=== PATIENT | female | born 1935 | race Caucasian/White ===

== ENCOUNTER 2017-04-14 20:52 | Inpatient (IN) | payer OTHER, BC ==
[~2017-04-14] VITALS: Ht 160 cm; Wt 44.9 kg
[2017-04-14 20:55] VITALS: BP 240/112
[2017-04-14] MEDS ORDERED: methylPREDNISolone SS 125 MG in WATER STERILE 2 ML IV ONE (21:05)
[2017-04-14] MEDS ORDERED: methylPREDNISolone SS 125 MG/2 ML VIAL ONE (21:09)
[2017-04-14] MEDS ORDERED: NITROGLYCERIN 0.4 MG TAB SL ONE (22:30)
[2017-04-14 22:49] LABS: PROTHROMBIN TIME 10.7 secs (10.8-13.4)
[2017-04-14 22:54] LABS: BASOPHILS # (AUTO) 0.1 K/uL (0.00-0.22); BASOPHILS % (AUTO) 0.8 % (0.0-2.0); EOSINOPHILS # (AUTO) 0.2 K/uL (0-0.4); EOSINOPHILS % (AUTO) 0.9 % (0.0-4.0); HEMATOCRIT 37.3 % (36-48); HEMOGLOBIN 12.1 g/dL (12.0-16.0); LYMPHOCYTES # (AUTO) 0.9 K/uL (2.5-16.5); LYMPHOCYTES % (AUTO) 5.1 % (20.5-51.1); MEAN CORPUSCULAR HEMOGLOBIN 30 pg (27-31); MEAN CORPUSCULAR HGB CONC 33 g/dL (33-37); MEAN CORPUSCULAR VOLUME 93 fL (80-94); MONOCYTES # (AUTO) 0.9 K/uL (0.8-1.0); MONOCYTES % (AUTO) 5.3 % (1.7-9.3); NEUTROPHILS # (AUTO) 15.1 K/uL (1.8-7.7); PLATELET COUNT (AUTO) 377 K/uL (140-450); RED CELL DISTRIBUTION WIDTH 19.5 % (11.6-13.7); WHITE BLOOD COUNT (AUTO) 17.2 K/uL (4.8-10.8)
[2017-04-14 22:56] LABS: NEUTROPHILS % (AUTO) 87.9 % (42.2-75.2)
[2017-04-14 23:01] LABS: ALBUMIN 3.8 g/dL (3.4-5.0); ANION GAP 17.9 (8-16); ASPARTATE AMINOTRANSFERASE 29 U/L (15-37); CARBON DIOXIDE 27.2 mmol/L (21-32); CHLORIDE 96 mmol/L (98-107); GLUCOSE 150 mg/dL (74-106); LIPASE 195 U/L (73-393); POTASSIUM 5.1 mmol/L (3.5-5.1); SODIUM SERUM 136 mmol/L (136-145); TOTAL BILIRUBIN 0.8 mg/dL (0.0-1.0); UREA NITROGEN, BLOOD 45 mg/dL (7-18)
[2017-04-14] MEDS ORDERED: NITROGLYCERIN 2% 1 GM PKT TP ONE (23:05)
[2017-04-14 23:10] LABS: CREATININE 6.3 mg/dL (0.6-1.3)
[2017-04-14] MEDS ORDERED: ASPIRIN 325 MG TAB PO ONE (23:15)
[2017-04-14] MEDS: NACL 0.9% 1,000 ML IV SCH (23:41)
[2017-04-14] MEDS: FUROSEMIDE 40 MG/4 ML VIAL IVP SCH ×2 (23:42→23:56)
[2017-04-14] MEDS ORDERED: ONDANSETRON 4 MG/2 ML VIAL IVP PRN (23:45)
[2017-04-14] MEDS ORDERED: HYDROcodone/APAP 7.5/325 MG 1 TAB PO PRN (23:45)
[2017-04-14] MEDS ORDERED: ACETAMINOPHEN 325 MG TAB PO PRN (23:45)
[2017-04-15 00:24] LABS: CHOL/HDL RATIO 3.4 (1-4.5); FREE T4 (FREE THYROXINE) 0.92 ng/dL (0.76-1.46); MAGNESIUM 2.7 mg/dL (1.8-2.4); PHOSPHORUS 5.9 mg/dL (2.5-4.9); THYROID STIMULATING HORMONE 2.47 uIU/mL (0.34-3.74)
[2017-04-15] MEDS: DOCUSATE SODIUM 100 MG GELCAP PO SCH ×2 (01:17→09:00)
[2017-04-15] MEDS: cloNIDine 0.1 MG TAB PO SCH ×3 (01:19→13:00)
[2017-04-15] MEDS ORDERED: hydrALAZINE 20 MG/ML VIAL IVP SCH (01:40)
[2017-04-15 02:00] VITALS: BP_SYST 231
[2017-04-15] MEDS ORDERED: hydrALAZINE 20 MG/ML VIAL IVP PRN (02:09)
[2017-04-15] MEDS ORDERED: LORazepam 1 MG TAB PO SCH (03:00)
[2017-04-15] MEDS ORDERED: HYDROcodone/APAP 5/325 MG 1 TAB TAB PO SCH (03:00)
[2017-04-15] MEDS ORDERED: ACET-8386 PO (03:09)
[2017-04-15] MEDS ORDERED: TRAM50TA3 PO (03:09)
[2017-04-15] MEDS ORDERED: AMMO12CR TP (03:09)
[2017-04-15] MEDS ORDERED: CARER90 PO (03:09)
[2017-04-15] MEDS ORDERED: FURO-570 PO (03:09)
[2017-04-15] MEDS ORDERED: PHO667 PO (03:09)
[2017-04-15] MEDS ORDERED: CLON0.1T42 PO (03:09)
[2017-04-15] MEDS ORDERED: FLUT1DSK2 IH (03:09)
[2017-04-15] MEDS ORDERED: BER PO (03:09)
[2017-04-15] MEDS ORDERED: LORA-476 PO (03:09)
[2017-04-15] MEDS ORDERED: FUROSEMIDE 40 MG/4 ML VIAL IVP SCH (03:15)
[2017-04-15] MEDS ORDERED: LEVOFLOXACIN 750 MG/D5W PREMIX 150 ML IV SCH (03:25)
[2017-04-15 06:58] LABS: BASOPHILS # (AUTO) 0.1 K/uL (0.00-0.22); BASOPHILS % (AUTO) 0.9 % (0.0-2.0); EOSINOPHILS # (AUTO) 0.1 K/uL (0-0.4); EOSINOPHILS % (AUTO) 0.9 % (0.0-4.0); HEMATOCRIT 34.1 % (36-48); HEMOGLOBIN 11.2 g/dL (12.0-16.0); LYMPHOCYTES # (AUTO) 0.3 K/uL (2.5-16.5); LYMPHOCYTES % (AUTO) 3.5 % (20.5-51.1); MEAN CORPUSCULAR HEMOGLOBIN 31 pg (27-31); MEAN CORPUSCULAR HGB CONC 33 g/dL (33-37); MEAN CORPUSCULAR VOLUME 93 fL (80-94); MONOCYTES % (AUTO) 0.5 % (1.7-9.3); NEUTROPHILS # (AUTO) 7.8 K/uL (1.8-7.7); NEUTROPHILS % (AUTO) 94.2 % (42.2-75.2); PLATELET COUNT (AUTO) 313 K/uL (140-450); RED BLOOD CELL COUNT(AUTO) 3.67 MIL/uL (4.20-5.40); RED CELL DISTRIBUTION WIDTH 19.3 % (11.6-13.7); WHITE BLOOD COUNT (AUTO) 8.3 K/uL (4.8-10.8)
[2017-04-15 07:27] LABS: ANION GAP 17.6 (8-16); CARBON DIOXIDE 26.2 mmol/L (21-32); CHLORIDE 97 mmol/L (98-107); GLUCOSE 175 mg/dL (74-106); POTASSIUM 5.8 mmol/L (3.5-5.1); SODIUM SERUM 135 mmol/L (136-145); UREA NITROGEN, BLOOD 51 mg/dL (7-18)
[2017-04-15 07:29] LABS: MAGNESIUM 2.5 mg/dL (1.8-2.4); PHOSPHORUS 5.6 mg/dL (2.5-4.9)
[2017-04-15 07:35] LABS: CREATININE 6.9 mg/dL (0.6-1.3)
[2017-04-15 08:00] VITALS: BP 197/87
[2017-04-15] MEDS: CALCIUM ACETATE 667 MG TAB PO SCH ×3 (08:55→17:47)
[2017-04-15] MEDS: VITAMIN B COMPLEX W/C 1 TAB PO SCH (08:55)
[2017-04-15] MEDS: traMADol 50 MG TAB PO SCH (08:55)
[2017-04-15] MEDS: LACTOBACILLUS RHAMNOSUS GG 1 EACH CAP PO SCH (08:55)
[2017-04-15] MEDS: FUROSEMIDE 40 MG TAB PO SCH (08:56)
[2017-04-15] MEDS ORDERED: NON-FORMULARY ITEM (Fluticasone/Salmeterol* (Advair 250-50 Diskus*) 1 PUFF) IH SCH (09:00)
[2017-04-15] MEDS ORDERED: AMMONIUM LACTATE TP SCH (09:00)
[2017-04-15] MEDS ORDERED: DILTIAZEM 90 MG CAPER PO SCH (09:00)
[2017-04-15] MEDS: DILTIAZEM 120 MG CAPER PO SCH (09:13)
[2017-04-15 12:00] VITALS: BP 150/76
[2017-04-15] MEDS ORDERED: hePARIN / DEXT 5% PREMIX 250 ML IV SCH ×2 (13:45→14:40)
[2017-04-15] MEDS ORDERED: HEPARIN PER PHARMACY MC PRN (13:45)
[2017-04-15 16:00] VITALS: BP 146/70
[2017-04-15 20:00] VITALS: BP 140/71
[2017-04-15] MEDS: NACL 0.9% 1,000 ML IV SCH (23:41)
[2017-04-16] VITALS: BP 146/67
[2017-04-16] MEDS: traMADol 50 MG TAB PO SCH ×3 (01:17→09:35)
[2017-04-16 04:00] VITALS: BP 161/78
[2017-04-16] MEDS: cloNIDine 0.1 MG TAB PO SCH ×2 (05:37→07:07)
[2017-04-16 07:00] LABS: BASOPHILS % (AUTO) 0.4 % (0.0-2.0); EOSINOPHILS # (AUTO) 0.1 K/uL (0-0.4); EOSINOPHILS % (AUTO) 0.7 % (0.0-4.0); HEMATOCRIT 32.4 % (36-48); HEMOGLOBIN 10.6 g/dL (12.0-16.0); LYMPHOCYTES # (AUTO) 0.7 K/uL (2.5-16.5); LYMPHOCYTES % (AUTO) 6.6 % (20.5-51.1); MEAN CORPUSCULAR HEMOGLOBIN 30 pg (27-31); MEAN CORPUSCULAR HGB CONC 33 g/dL (33-37); MEAN CORPUSCULAR VOLUME 93 fL (80-94); MONOCYTES # (AUTO) 0.8 K/uL (0.8-1.0); MONOCYTES % (AUTO) 7.5 % (1.7-9.3); NEUTROPHILS # (AUTO) 8.7 K/uL (1.8-7.7); NEUTROPHILS % (AUTO) 84.8 % (42.2-75.2); PLATELET COUNT (AUTO) 309 K/uL (140-450); RED BLOOD CELL COUNT(AUTO) 3.49 MIL/uL (4.20-5.40); RED CELL DISTRIBUTION WIDTH 19.9 % (11.6-13.7); WHITE BLOOD COUNT (AUTO) 10.3 K/uL (4.8-10.8)
[2017-04-16 07:24] LABS: ANION GAP 12.2 (8-16); CARBON DIOXIDE 30.3 mmol/L (21-32); CHLORIDE 97 mmol/L (98-107); CREATININE 3.8 mg/dL (0.6-1.3); GLUCOSE 93 mg/dL (74-106); POTASSIUM 4.5 mmol/L (3.5-5.1); SODIUM SERUM 135 mmol/L (136-145); UREA NITROGEN, BLOOD 21 mg/dL (7-18)
[2017-04-16 07:30] LABS: PHOSPHORUS 4.9 mg/dL (2.5-4.9)
[2017-04-16 08:00] VITALS: BP 180/78
[2017-04-16] MEDS: CALCIUM ACETATE 667 MG TAB PO SCH ×2 (09:00→09:35)
[2017-04-16] MEDS: DOCUSATE SODIUM 100 MG GELCAP PO SCH ×2 (09:00→09:34)
[2017-04-16] MEDS: FUROSEMIDE 40 MG TAB PO SCH ×2 (09:00→09:35)
[2017-04-16] MEDS ORDERED: CARVEDILOL 3.125 MG TAB PO SCH (09:30)
[2017-04-16] MEDS: VITAMIN B COMPLEX W/C 1 TAB PO SCH (09:32)
[2017-04-16] MEDS: LACTOBACILLUS RHAMNOSUS GG 1 EACH CAP PO SCH (09:34)
[2017-04-16] MEDS: DILTIAZEM 120 MG CAPER PO SCH (09:34)
[2017-04-16] MEDS ORDERED: hydrALAZINE 20 MG/ML VIAL IVP PRN (11:25)
[2017-04-16] MEDS ORDERED: hydrALAZINE 10 MG TAB PO SCH ×2 (11:26→13:00)
[2017-04-16] MEDS ORDERED: CARV3.12 PO (11:42)
[2017-04-17] MEDS ORDERED: CARVEDILOL 3.125 MG TAB PO SCH (09:00)
== END 2017-04-16 12:05 | disposition left against medical advice (07) | DRG 291 ==
LOC: MED 20:52 → MTU 23:44
PROVIDERS: ADMIT Family Medicine; ATTEND Family Medicine
PROC: 5A1D70Z Performance of Urinary Filtration, Intermittent, Less than 6 Hours Per Day (ICD-10-PCS; principal; 2017-04-14)
DX: I13.2 Hypertensive heart and chronic kidney disease with heart failure and with stage 5 chronic kidney disease, or end stage renal disease (principal); I50.43 Acute on chronic combined systolic (congestive) and diastolic (congestive) heart failure; N17.0 Acute kidney failure with tubular necrosis; J96.00 Acute respiratory failure, unspecified whether with hypoxia or hypercapnia; N18.6 End stage renal disease; I16.9 Hypertensive crisis, unspecified; E87.1 Hypo-osmolality and hyponatremia; E78.5 Hyperlipidemia, unspecified; F41.9 Anxiety disorder, unspecified; D64.9 Anemia, unspecified; E83.39 Other disorders of phosphorus metabolism; E87.5 Hyperkalemia; E83.41 Hypermagnesemia; I42.9 Cardiomyopathy, unspecified; Z53.21 Procedure and treatment not carried out due to patient leaving prior to being seen by health care provider; Z87.891 Personal history of nicotine dependence; Z99.2 Dependence on renal dialysis; Z90.49 Acquired absence of other specified parts of digestive tract; Z90.710 Acquired absence of both cervix and uterus; Z87.81 Personal history of (healed) traumatic fracture; Z99.81 Dependence on supplemental oxygen
CPT/HCPCS: 36415; 36600; 70450; 71045; 76604; 80048; 80053; 82150; 82803; 82948; 83036; 83605; 83690; 83735; 83880; 84100; 84439; 84443; 84484; 85025; 85610; 85730; 87040; 87081; 93005; 96374; 96375; 99291; J0360; J1940; J1956; J2930; J7030; Q0092